=== PATIENT | female | born 1970 | race Caucasian/White ===

== ENCOUNTER → 2024-03-13 10:11 | Outpatient (REF) | payer BC, SELFPAY | LOC: RAD 10:11 | PROVIDERS: ATTENDING PHYSICIAN Obstetrics & Gynecology; FAMILY PHYSICIAN Family Medicine; REFERRING PHYSICIAN Obstetrics & Gynecology | DX: N95.0 Postmenopausal bleeding (principal) | CPT/HCPCS: 76830; 76856 ==

== ENCOUNTER → 2024-07-01 08:53 | Outpatient (REF) | payer BC, SELFPAY | LOC: RSP 08:53 | PROVIDERS: ATTENDING PHYSICIAN Family Medicine | DX: R06.02 Shortness of breath (principal) | CPT/HCPCS: 94727; 94729; 88738; 94010 ==

== ENCOUNTER → 2024-10-20 07:23 | Outpatient (REF) | payer BC, SELFPAY | LOC: RAD 07:23 | PROVIDERS: ATTENDING PHYSICIAN Internal Medicine Pulmonary Disease; FAMILY PHYSICIAN Family Medicine | DX: J84.9 Interstitial pulmonary disease, unspecified (principal) | CPT/HCPCS: 71250 ==

== ENCOUNTER → 2025-02-03 07:08 | Outpatient (REF) | payer BC, SELFPAY | LOC: PAVMRI 07:08 | PROVIDERS: ATTENDING PHYSICIAN Physician Assistant Surgical; FAMILY PHYSICIAN Family Medicine | DX: M54.12 Radiculopathy, cervical region (principal); M54.2 Cervicalgia; M75.41 Impingement syndrome of right shoulder | CPT/HCPCS: 72141 ==